=== PATIENT | male | born 1975 | race American Indian/Alaskan Native ===

== ENCOUNTER 2016-08-25 23:05 | Emergency (ER) | payer OTHER ==
[2016-08-25 23:06] VITALS: BMI 28.0
[2016-08-25] MEDS ORDERED: Albuterol-Ipratrop 3 mg / 0.5 (3 ml) UD ONE ×3 (23:13→23:27)
[2016-08-25] MEDS ORDERED: Albuterol-Ipratrop 3 mg / 0.5 (3 ml) UD INH STA ×2 (23:16→23:22)
--- NOTE | 2016-08-26 00:18 | C.PDOC ---
History Of Present Illness 41 y/o male with past medical history of asthma presents to emergency department with complaint of shortness of breath, cough, and wheezing for 2 days. Pt states he ran out of albuterol puffer. Notes he took 1 nebulizer treatment at home prior to arrival with limited relief. Otherwise, denies fever , chills, dizziness, headache, chest pain, or other associated symptoms. Time Seen by Provider: 08/25/16 23:19 Chief Complaint (Nursing): Respiratory Distress History Per: Patient History/Exam Limitations: no limitations Onset/Duration Of Symptoms: Days Current Symptoms Are (Timing): Still Present Associated Symptoms: Cough. denies: Fever, Chest Pain Recent travel outside of the [place]: No Past Medical History Reviewed: Historical Data, Nursing Documentation, Vital Signs Vital Signs: Last Vital Signs Temp 97.9 F 08/26/16 00:34 Pulse 81 08/26/16 00:34 Resp 19 08/26/16 00:34 BP 117/75 08/26/16 00:34 Pulse Ox 95 08/26/16 01:16 - Medical History PMH: Asthma Family History: States: Unknown Family Hx - Social History Hx Tobacco Use: No Hx Alcohol Use: Yes Hx Substance Use: No - Immunization History Hx Tetanus Toxoid Vaccination: No Hx Influenza Vaccination: No Hx Pneumococcal Vaccination: No Review Of Systems Except As Marked, All Systems Reviewed And Found Negative. Constitutional: Negative for: Fever, Chills Cardiovascular: Negative for: Chest Pain, Palpitations Respiratory: Positive for: Cough, Shortness of Breath, Wheezing Gastrointestinal: Negative for: Nausea, Vomiting Skin: Negative for: Rash Neurological: Negative for: Headache, Dizziness Physical Exam - Physical Exam Appears: Non-toxic, No Acute Distress Skin: Normal Color, Warm, Dry Head: Atraumatic, Normacephalic Oral Mucosa: Moist Chest: Symmetrical Cardiovascular: Rhythm Regular Respiratory: No Accessory Muscle Use, No Rales, Rhonchi (moderate, scattered ), Wheezing (moderate, scattered) Gastrointestinal/Abdominal: Soft, No Tenderness, No Guarding, No Rebound Back: Normal Inspection Extremity: Normal ROM, Capillary Refill (< 2 sec. ) Neurological/Psych: Oriented x3, Normal Speech, Normal Cognition ED Course And Treatment O2 Sat by Pulse Oximetry: 95 (RA) Pulse Ox Interpretation: Normal Progress Note: Duonebs, prednisone, pepcid given. On re-evaluation, patient has improved, with improved breath sounds. Advised to continue using home nebulizer and follow up with clinic/PMD. Reevaluation Time: 00:16 Reassessment Condition: Improved Critical Care Time - Critical Care Note Total Time (in mins): 90 Documented critical care: time excludes all time spent performing seperately billable procedures. Medical Decision Making Medical Decision Making: improved has home nebs machine. Disposition Doctor Will See Patient In The: Office Counseled Patient/Family Regarding: Studies Performed, Diagnosis - Disposition Referrals: [facility] [Outside] Disposition: HOME/ ROUTINE Disposition Time: 00:18 Condition: GOOD Additional Instructions: continue prednisone 40 mg daily for 4 more days Pepcid 20 mg @ night to prevent stomach irritation from the Prednisone Duoneb inhaled treatments with TWO ampules every 3-4 hours while awake Always use your Albuterol puffer with the Aerochamber Spacer (makes it more effective) Prescriptions: Spacer, Inhalation [Aerochamber] 1 dev IH DAILY #1 dev Prednisone [Deltasone] 40 mg PO DAILY #8 tablet Albuterol/Ipratropium [Duoneb 3 MG/3 Ml-0.5 MG/3 Ml 3 Ml] 6 ml IH Q4H PRN #100 neb PRN Reason: asthma Albuterol HFA [Ventolin HFA 90 mcg/actuation (8 g)] 200 puff IH Q4H PRN #2 puff PRN Reason: asthma Instructions: Asthma (ED) - Clinical Impression Clinical Impression: Exacerbation of asthma - Scribe Statement The provider has reviewed the documentation as recorded by the Boyd Domingo All medical record entries made by the Winsomeibcamelia were at my direction and personally dictated by me. I have reviewed the chart and agree that the record accurately reflects my personal performance of the history, physical exam, medical decision making, and the department course for this patient. I have also personally directed, reviewed, and agree with the discharge instructions and disposition.
[2016-08-26 00:45] VITALS: PULSE 81; RESP 19; TEMP 97.9
[2016-08-26 00:46] VITALS: BP 117/75
[2016-08-26 01:15] VITALS: O2SAT 95
== END 2016-08-26 00:48 | disposition home or self-care (01) ==
LOC: C.ER 23:05
DX: J45.901 Unspecified asthma with (acute) exacerbation (principal)

== ENCOUNTER 2017-01-20 17:40 | Emergency (ER) | payer OTHER ==
[2017-01-20 17:41] VITALS: BMI 28.0
[2017-01-20 17:50] VITALS: TEMP 98.4
[2017-01-20] MEDS ORDERED: Albuterol-Ipratrop 3 mg / 0.5 (3 ml) UD INH STA (18:22)
[2017-01-20] MEDS ORDERED: Albuterol-Ipratrop 3 mg / 0.5 (3 ml) UD ONE (18:31)
--- NOTE | 2017-01-20 18:33 | C.PDOC ---
History Of Present Illness 41 year old male with a history of asthma presents to the ED with complaints of cough, asthma exacerbation with shortness of breath for two days. Patient denies wheezing, use of medications, vomiting, or other complaints at this time. Time Seen by Provider: 01/20/17 18:04 Chief Complaint (Nursing): Shortness Of Breath History Per: Patient History/Exam Limitations: no limitations Onset/Duration Of Symptoms: Days (2 days ) Current Symptoms Are (Timing): Still Present Current Respiratory Medications: None Associated Symptoms: Productive Cough (with clear sputum ) Recent travel outside of the [place]: No Past Medical History Reviewed: Historical Data, Nursing Documentation, Vital Signs Vital Signs: Last Vital Signs Temp 98.4 F 01/20/17 17:48 Pulse 78 01/20/17 19:48 Resp 18 01/20/17 19:48 BP 124/72 01/20/17 19:48 Pulse Ox 96 01/20/17 21:25 - Medical History PMH: Asthma Family History: States: Unknown Family Hx - Social History Hx Tobacco Use: No Hx Alcohol Use: No Hx Substance Use: No - Immunization History Hx Tetanus Toxoid Vaccination: No Hx Influenza Vaccination: No Hx Pneumococcal Vaccination: No Review Of Systems Constitutional: Negative for: Fever, Chills Cardiovascular: Negative for: Chest Pain Respiratory: Positive for: Cough, Shortness of Breath (asthma exacerbation ). Negative for: Wheezing Gastrointestinal: Negative for: Nausea, Vomiting Physical Exam - Physical Exam Appears: Well, Non-toxic, No Acute Distress, Other (No respiratory distress ) Skin: Warm, Dry Head: Atraumatic, Normacephalic Eye(s): bilateral: Normal Inspection, PERRL, EOMI Oral Mucosa: Moist Chest: Symmetrical, No Deformity Cardiovascular: Rhythm Regular, No Murmur Respiratory: Normal Breath Sounds, No Accessory Muscle Use, No Rales, No Rhonchi , No Wheezing, Other (Speaking in complete sentences. Ocassional coarse sound that subsided with cough. ) Extremity: Normal ROM, No Tenderness Neurological/Psych: Oriented x3 ED Course And Treatment O2 Sat by Pulse Oximetry: 96 (room air ) Progress Note: Patient was given Duoneb and Tylenol. Medical Decision Making Medical Decision Making: pt refusing cxr. feels much better after neb treatment. pt ran out of his mdi yesterday. lungs cta after nreb, will d/c with mdi and pmd f/u. Disposition Counseled Patient/Family Regarding: Diagnosis, Need For Followup, Rx Given - Disposition Referrals: [facility] [Outside] Disposition: HOME/ ROUTINE Disposition Time: 18:58 Condition: IMPROVED Additional Instructions: Follow up with your pmd or in clinic. Use inhaler every 6 hours. Return to ER for any worse symptms. 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 - Scribe Statement The provider has reviewed the documentation as recorded by the Scribe Jackie Piña All medical record entries made by the Scribcamelia were at my direction and personally dictated by me. I have reviewed the chart and agree that the record accurately reflects my personal performance of the history, physical exam, medical decision making, and the department course for this patient. I have also personally directed, reviewed, and agree with the discharge instructions and disposition.
[2017-01-20 19:48] VITALS: BP 124/72; PULSE 78; RESP 18
[2017-01-20 20:39] VITALS: O2SAT 96
== END 2017-01-20 19:49 | disposition home or self-care (01) ==
LOC: C.ER 17:40
DX: J06.9 Acute upper respiratory infection, unspecified (principal); J45.909 Unspecified asthma, uncomplicated

== ENCOUNTER 2017-01-21 06:30 | Emergency (ER) | payer OTHER ==
[2017-01-21 06:30] VITALS: BMI 28.0
[2017-01-21] MEDS ORDERED: Albuterol-Ipratrop 3 mg / 0.5 (3 ml) UD ONE ×2 (06:39→08:31)
[2017-01-21 06:55] VITALS: BP 147/81; TEMP 98.1
[2017-01-21] MEDS ORDERED: Albuterol-Ipratrop 3 mg / 0.5 (3 ml) UD INH STA ×2 (07:21→08:23)
--- NOTE | 2017-01-21 08:21 | C.PDOC ---
History Of Present Illness 41 y/o male, with PMHx of asthma, presents to ED for evaluation of shortness of breath, and cough for the past 3 days. Pt states that he normally gets these symptoms once a year with change of season. Pt notes that he was evaluated here yesterday and was given nebulizer treatment. Pt is requesting Rx of Prednisone because that is what makes him feel better. Otherwise, denies fever, chills, congestion, chest pain, headache, or lower extremity pain/swelling. Time Seen by Provider: 01/21/17 07:01 Chief Complaint (Nursing): Shortness Of Breath History Per: Patient History/Exam Limitations: no limitations Onset/Duration Of Symptoms: Days Current Symptoms Are (Timing): Still Present Exacerbating Factor(s): Coughing Current Respiratory Medications: See Home Med List Severity: None Pain Scale Rating Of: 0 Associated Symptoms: denies: Fever, Chills, Sweating, Chest Pain, Bloody Cough, Heart Racing, Leg/Calf Pain, Ankle/Leg Swelling, Dizziness, Light-headedness, Anxiety, Tingling In Hands Or Face, Musle Spasms In Hands Or Feet Reports Recently: Seen In ED Recent travel outside of the [place]: No Additional History Per: Patient Past Medical History Reviewed: Historical Data, Nursing Documentation, Vital Signs Vital Signs: Last Vital Signs Temp 98.1 F 01/21/17 06:48 Pulse 88 01/21/17 09:29 Resp 18 01/21/17 09:29 BP 147/81 01/21/17 06:48 Pulse Ox 95 01/21/17 09:29 - Medical History PMH: Asthma Family History: States: Unknown Family Hx - Social History Hx Tobacco Use: No Hx Alcohol Use: No Hx Substance Use: No - Immunization History Hx Tetanus Toxoid Vaccination: No Hx Influenza Vaccination: No Hx Pneumococcal Vaccination: No Review Of Systems Except As Marked, All Systems Reviewed And Found Negative. Constitutional: Negative for: Fever, Chills ENT: Negative for: Nose Congestion Cardiovascular: Negative for: Chest Pain, Palpitations, Edema, Light Headedness Respiratory: Positive for: Cough, Shortness of Breath. Negative for: Hemoptysis , Pleuritic Pain, Sputum Gastrointestinal: Negative for: Nausea, Vomiting, Abdominal Pain Skin: Negative for: Rash, Bruising Neurological: Negative for: Headache, Dizziness Physical Exam - Physical Exam Appears: Non-toxic, No Acute Distress (no acute respiratory distress) Skin: Normal Color, Warm, Dry Head: Atraumatic, Normacephalic Eye(s): bilateral: Normal Inspection, EOMI Nose: Normal Oral Mucosa: Moist Neck: Normal ROM, Supple Chest: Symmetrical, No Tenderness Cardiovascular: Rhythm Regular, No Murmur Respiratory: No Accessory Muscle Use, No Rales, No Rhonchi, Wheezing ( bilaterally), Other (Pt speaking in full sentences) Gastrointestinal/Abdominal: Soft, No Tenderness Back: No CVA Tenderness Extremity: Normal ROM, No Pedal Edema Neurological/Psych: Oriented x3, Normal Speech ED Course And Treatment O2 Sat by Pulse Oximetry: 96 (on RA) Pulse Ox Interpretation: Normal - Radiology CXR: Interpreted by Me, Viewed By Me CXR Interpretation: Yes: No Acute Disease Progress Note: CXR ordered and reviewed. Pt was given Prednisone and nebulizer treatment. On re-eval, patient is resting comfortably with no wheezing, chest pain, or retractions. Oxygen saturation remains stable. Patient is alert and oriented x 3. Patient was advised to follow up with physician in 1-2 days. Disposition - Disposition Disposition: HOME/ ROUTINE Disposition Time: 08:20 Condition: STABLE Additional Instructions: Follow up with your primary medical doctor or clinic in 2-5 days for further evaluation. Take medications as prescribed. Return to the emergency department at any time if symptoms persist or worsen. 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 - Scribe Statement The provider has reviewed the documentation as recorded by the Scribe Norberto Packer All medical record entries made by the Scribe were at my direction and personally dictated by me. I have reviewed the chart and agree that the record accurately reflects my personal performance of the history, physical exam, medical decision making, and the department course for this patient. I have also personally directed, reviewed, and agree with the discharge instructions and disposition.
[2017-01-21 09:30] VITALS: PULSE 88; RESP 18
--- NOTE | 2017-01-21 09:39 | RAD ---
HISTORY: Shortness of breath COMPARISON: No prior. TECHNIQUE: Chest PA and lateral FINDINGS: LUNGS: No active pulmonary disease. PLEURA: No significant pleural effusion identified. No pneumothorax apparent. CARDIOVASCULAR: Normal. OSSEOUS STRUCTURES: No significant abnormalities. VISUALIZED UPPER ABDOMEN: Normal. OTHER FINDINGS: None. IMPRESSION: No active disease.
[2017-01-21 13:55] VITALS: O2SAT 96
== END 2017-01-21 09:30 | disposition home or self-care (01) ==
LOC: C.ER 06:30
DX: J45.901 Unspecified asthma with (acute) exacerbation (principal)

== ENCOUNTER 2017-03-16 03:32 | Emergency (ER) | payer OTHER ==
[2017-03-16 03:33] VITALS: BMI 28.0
[2017-03-16] MEDS: Albuterol-Ipratrop 3 mg / 0.5 (3 ml) UD IH SCH ×2 (03:40→04:01)
[2017-03-16] MEDS ORDERED: Albuterol-Ipratrop 3 mg / 0.5 (3 ml) UD ONE ×2 (03:41→03:57)
[2017-03-16] MEDS ORDERED: Dexamethasone 4 mg/1 ml IM STA (03:45)
[2017-03-16] MEDS ORDERED: Dexamethasone 4 mg/1 ml ONE (03:49)
[2017-03-16 04:26] VITALS: BP 130/70; PULSE 90; TEMP 97.9; O2SAT 97
--- NOTE | 2017-03-16 04:27 | C.PDOC ---
History Of Present Illness 41 year old male with a Hx of asthma presents to the ER after developing SOB, chest tightness, and wheezing after he got home from walking his dog. Patient states he used a nebulizer at home with no relief to symptoms, patient is requesting steroids. Denies chest pain, nausea, or vomiting. Time Seen by Provider: 03/16/17 03:42 Chief Complaint (Nursing): Respiratory Distress History Per: Patient History/Exam Limitations: no limitations Onset/Duration Of Symptoms: Mins, Sudden Onset Current Symptoms Are (Timing): Still Present Associated Symptoms: Dyspnea, Other (Chest tightness, SOB) Preciptating Factors: Other (After walking dog) Recent travel outside of the [place]: No - Asthma History Rescue Medications: See Home Medication List Control Medications: See Home Medication List Past Medical History Reviewed: Historical Data, Nursing Documentation, Vital Signs Vital Signs: Last Vital Signs Temp 97.9 F 03/16/17 03:37 Pulse 90 03/16/17 03:37 Resp 20 03/16/17 03:40 BP 130/70 03/16/17 03:37 Pulse Ox 97 03/16/17 03:37 - Medical History PMH: Asthma Surgical History: No Surg Hx Family History: States: Unknown Family Hx - Social History Hx Tobacco Use: No Hx Alcohol Use: No Hx Substance Use: No - Immunization History Hx Tetanus Toxoid Vaccination: No Hx Influenza Vaccination: No Hx Pneumococcal Vaccination: No Review Of Systems Constitutional: Negative for: Fever, Chills Cardiovascular: Negative for: Chest Pain, Palpitations Respiratory: Positive for: Shortness of Breath, Wheezing, Other (Chest tightness ) Physical Exam - Physical Exam Appears: Non-toxic Skin: Normal Color, Warm, Dry Head: Atraumatic, Normacephalic Eye(s): bilateral: Normal Inspection, EOMI Oral Mucosa: Moist Chest: Symmetrical Cardiovascular: Rhythm Regular Respiratory: Decreased Breath Sounds, No Accessory Muscle Use, Wheezing ( Expiratory) Gastrointestinal/Abdominal: Soft, No Tenderness Neurological/Psych: Oriented x3, Normal Speech, Normal Cognition ED Course And Treatment Progress Note: Brethine, decadron, and duoneb administered. On reevaluation, patient has improvement of condition with good air entry, minimal scattered wheezes, and good breath sounds; will discharge home with Rx and instructions to follow up with PMD. Disposition Counseled Patient/Family Regarding: Diagnosis, Need For Followup, Rx Given - Disposition Disposition: HOME/ ROUTINE Disposition Time: 04:25 Condition: STABLE Additional Instructions: Please increase POI fluids Continue Albuterol nebulizer or inhaler Follow up with PMD Return to ED if worse Prescriptions: Albuterol HFA [Ventolin HFA 90 mcg/actuation (8 g)] 2 puff IH [id number] #1 puff predniSONE [Prednisone] 40 mg PO DAILY #8 tab Instructions: Asthma (ED) Forms: [employer] (Qatari) - Clinical Impression Clinical Impression: Bronchospasm, Asthma attack - Scribe Statement The provider has reviewed the documentation as recorded by the Scribe Eze Reid All medical record entries made by the Winsomeibcamelia were at my direction and personally dictated by me. I have reviewed the chart and agree that the record accurately reflects my personal performance of the history, physical exam, medical decision making, and the department course for this patient. I have also personally directed, reviewed, and agree with the discharge instructions and disposition.
[2017-03-16 04:36] VITALS: RESP 20
== END 2017-03-16 04:36 | disposition home or self-care (01) ==
LOC: C.ER 03:32
DX: J45.909 Unspecified asthma, uncomplicated (principal)
CPT/HCPCS: 96372; 99283; J1100; J3105

== ENCOUNTER 2018-03-27 01:09 | Emergency (ER) | payer SELFPAY ==
[2018-03-27 01:09] VITALS: BMI 28.0
--- NOTE | 2018-03-27 01:24 | C.PDOC ---
History Of Present Illness 42 yr old male w/ hx of asthma p/w shortness of breath. Pt notes shortness of breath began roughly 1 hr prior, after going to a friends house with a dog. No rash, but pt notes shortness of breath feels exactly like his previous asthma exacerbations. Pt used inhaler without relief. No chest pain. No cough. No fever, chills or night sweats. No other complaints. Denies previous intubations for asthma but notes previous admissions. Time Seen by Provider: 03/27/18 01:23 Past Medical History - Medical History PMH: Asthma Family History: States: Unknown Family Hx - Social History Hx Tobacco Use: No Hx Alcohol Use: No Hx Substance Use: No - Immunization History Hx Tetanus Toxoid Vaccination: No Hx Influenza Vaccination: No Hx Pneumococcal Vaccination: No Review Of Systems Constitutional: Negative for: Fever, Chills, Weakness, Malaise Eyes: Negative for: Pain, Vision Change, Conjunctivae Inflammation ENT: Negative for: Ear Pain, Ear Discharge, Nose Congestion, Mouth Pain Cardiovascular: Negative for: Chest Pain, Palpitations Respiratory: Positive for: Shortness of Breath, Wheezing. Negative for: Cough, Hemoptysis, SOB with Excertion, Pleuritic Pain, Sputum Gastrointestinal: Negative for: Nausea, Vomiting, Abdominal Pain, Constipation, Melena, Hematochezia Genitourinary: Negative for: Dysuria, Frequency, Hematuria Musculoskeletal: Negative for: Neck Pain, Back Pain Skin: Negative for: Rash, Lesions Neurological: Negative for: Weakness, Numbness, Change in Speech, Headache Psych: Negative for: Anxiety, Depression Physical Exam - Physical Exam Appears: Well, Non-toxic, No Acute Distress, Other (speaking in full sentences) Skin: Normal Color, Warm, Dry Head: Atraumatic, Normacephalic Eye(s): bilateral: Normal Inspection, PERRL, EOMI Ear(s): Bilateral: Normal Nose: Normal Tongue: Normal Appearing Lips: Normal Appearing Teeth: Normal Dentition Gingiva: Normal Appearing Throat: Normal, No Erythema, No Exudate, No Drooling, No Mass Neck: Normal, Normal ROM, Supple, Other (no meningeal signs) Chest: Symmetrical, No Deformity Cardiovascular: Rhythm Regular Respiratory: No Accessory Muscle Use, No Rales, No Rhonchi, No Stridor, Wheezing, No Plerual Rub (b/l mild wheezing) Gastrointestinal/Abdominal: Normal Exam, Soft, No Tenderness, No Organomegaly, No Mass, No Distention Back: Normal Inspection, No CVA Tenderness Extremity: Normal ROM, No Tenderness Extremity: Bilateral: Atraumatic Neurological/Psych: Oriented x3, Normal Speech, Normal Cognition, No Cerebellar Signs, Normal Motor Gait: Steady Medical Decision Making Medical Decision Makin yr old male w/ hx of asthma p/w asthma exacerbation. No CP. No back pain. No cough. No rashes. no fever, chills or night sweats. No signs of allergic rx. Pending rx and reassessment. 0219 wheezes resolved pt notes major improvement, continued in NAD, speaking in full sentences without accessory muscle usage. will d/c home with steroids and inhaler- pt agreeable Disposition - Disposition Disposition: HOME/ ROUTINE Disposition Time: 02:19 Condition: GOOD - Clinical Impression Clinical Impression: Asthma exacerbation
[2018-03-27] MEDS ORDERED: Albuterol-Ipratrop 3 mg / 0.5 (3 ml) UD ONE (01:26)
[2018-03-27 01:30] VITALS: PULSE 78; RESP 18; TEMP 98; O2SAT 98
[2018-03-27] MEDS ORDERED: MethylPREDNISolone 40 mg Vial IVP STA (01:32)
[2018-03-27] MEDS ORDERED: Albuterol-Ipratrop 3 mg / 0.5 (3 ml) UD INH PRN (01:32)
[2018-03-27 03:03] VITALS: BP 116/79
== END 2018-03-27 03:03 | disposition home or self-care (01) ==
LOC: C.ER 01:09
DX: J45.901 Unspecified asthma with (acute) exacerbation (principal)
CPT/HCPCS: 96374; 99283; J2920

== ENCOUNTER 2018-04-06 00:55 | Emergency (ER) | payer SELFPAY ==
[~2018-04-06 00:55] MED LIST: Albuterol-Ipratrop 3 mg / 0.5 (3 ml) UD INH STA
[2018-04-06 00:56] VITALS: BMI 28.0
[2018-04-06] MEDS ORDERED: Albuterol-Ipratrop 3 mg / 0.5 (3 ml) UD INH STA ×2 (01:00→01:26)
[2018-04-06] MEDS ORDERED: Albuterol-Ipratrop 3 mg / 0.5 (3 ml) UD ONE (01:05)
--- NOTE | 2018-04-06 03:13 | C.PDOC ---
History Of Present Illness 42 year old male with PMHx of asthma presents to the ED c/o asthma exacerbation. Patient reports that he has been having multiple asthma attacks. Patient was seen in the ED on 03/27 and given prescription for albuterol pump and prednisone. Patient reports he never the prescriptions because he has no insurance. Patient states he has another asthma attack today. Patient denies fever, chills, CP, palpitations, nausea, vomit, diarrhea, rash. Chief Complaint (Nursing): Shortness Of Breath History Per: Patient History/Exam Limitations: no limitations Onset/Duration Of Symptoms: Days Current Symptoms Are (Timing): Still Present Initiating Event: Upper Respiratory Illness Quality: Tightness Current Respiratory Medications: See Home Med List Reports Recently: Seen In ED (03/27/18) Recent travel outside of the [place]: No Additional History Per: Patient Past Medical History Reviewed: Historical Data, Nursing Documentation, Vital Signs Vital Signs: Last Vital Signs Temp 98.3 F 04/06/18 01:07 Pulse 77 04/06/18 02:49 Resp 15 04/06/18 02:49 BP 117/81 04/06/18 02:49 Pulse Ox 95 04/06/18 02:49 - Medical History PMH: Asthma Surgical History: No Surg Hx Family History: States: Unknown Family Hx - Social History Hx Tobacco Use: No Hx Alcohol Use: No Hx Substance Use: No - Immunization History Hx Tetanus Toxoid Vaccination: No Hx Influenza Vaccination: No Hx Pneumococcal Vaccination: No Review Of Systems Constitutional: Negative for: Fever, Chills ENT: Negative for: Nose Congestion, Throat Pain Cardiovascular: Negative for: Chest Pain, Palpitations Respiratory: Positive for: Shortness of Breath, Wheezing Gastrointestinal: Negative for: Nausea, Vomiting Skin: Negative for: Rash Neurological: Negative for: Headache, Dizziness Physical Exam - Physical Exam Appears: Non-toxic, No Acute Distress Skin: Normal Color, Warm, Dry Head: Atraumatic, Normacephalic Eye(s): bilateral: Normal Inspection Oral Mucosa: Moist Neck: Normal ROM, Supple Chest: Symmetrical Cardiovascular: Rhythm Regular Respiratory: No Rales, No Rhonchi, Wheezing (bilaterally) Gastrointestinal/Abdominal: Soft, No Tenderness Extremity: Normal ROM, No Tenderness, No Swelling Neurological/Psych: Oriented x3, Normal Speech, Normal Cognition Gait: Steady ED Course And Treatment O2 Sat by Pulse Oximetry: 95 (ON RA) Pulse Ox Interpretation: Normal Progress Note: Plan: - Duoneb X 3. - Prednisone 60 mg PO. Patient improved from initial, still having some few diffuse wheezes. Patient was strongly encouraged to fill up prescriptions and to follow up with PMD for further evaluation. Disposition - Disposition Disposition: HOME/ ROUTINE Disposition Time: 03:08 Condition: STABLE Additional Instructions: Follow up within 1-2 days. Return to ED if feel worse. 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 - Scribe Statement The provider has reviewed the documentation as recorded by the Scribe Asaf Johnson All medical record entries made by the Scribe were at my direction and personally dictated by me. I have reviewed the chart and agree that the record accurately reflects my personal performance of the history, physical exam, medical decision making, and the department course for this patient. I have also personally directed, reviewed, and agree with the discharge instructions and disposition.
[2018-04-06 04:10] VITALS: BP 118/74; PULSE 74; RESP 14; TEMP 97.8
[2018-04-06 04:43] VITALS: O2SAT 95
== END 2018-04-06 04:20 | disposition home or self-care (01) ==
LOC: C.ER 00:55
DX: J45.901 Unspecified asthma with (acute) exacerbation (principal)